=== PATIENT | female | born 1985 | race Caucasian/White ===

== ENCOUNTER 2021-02-11 13:35 | Observation (INO) ==
[2021-02-11] MEDS ORDERED: Aspirin 81 MG TAB.CHEW PO ONE (14:51)
[2021-02-11] MEDS ORDERED: Isovue-370 500 ML BOTTLE IVP ONE (14:51)
[2021-02-11 15:25] LABS: Basophils % 0.4 %; Eosinophils # 0.1 K/mcL (0.0-0.6); Eosinophils % 1.4 %; Hematocrit 45.8 % (35.3-44.9); Hemoglobin 14.4 g/dL (11.5-15.4); Immature Granulocytes % 0.3 % (0-4); Lymphocytes # 1.5 K/mcL (0.6-4.6); Lymphocytes % 20.8 %; Mean Corpuscular HGB Conc 31.4 g/dL (31.6-35.5); Mean Corpuscular Volume 82.8 fL (83.0-100.0); Mean Platelet Volume 11.3 fL (9.4-12.4); Monocytes # 0.6 K/mcL (0.0-1.3); Monocytes % 7.8 %; Neutrophils # 5.1 K/mcL (1.6-8.9); Platelet Count 230 K/mcL (140-400); Red Blood Count 5.53 M/mcL (3.82-4.97); Red Cell Distribution Width 13.2 % (11.5-14.5); Segmented Neutrophils % 69.3 %; White Blood Count 7.3 K/mcL (4.3-11.1)
[2021-02-11 15:32] LABS: INR 1.3; Prothrombin Time 14.1 Seconds (9.4-12.1)
[2021-02-11 15:34] LABS: Activated Partial Thrombo Time 35.4 Seconds (26.0-36.0)
[2021-02-11] MEDS: Nitroglycerin 0.4 MG TAB.SUBL SL PRN ×2 (15:34→16:49)
[2021-02-11 15:45] LABS: Bilirubin,Urine Negative (Negative); Blood,Urine Negative (Negative); Clarity,Urine Clear (Clear); Color,Urine Colorless (Yellow); Glucose,Urine (UA) Normal (Normal); Ketones,Urine Negative (Negative); Leukocyte Esterase,Urine Negative (Negative); Nitrite,Urine Negative (Negative); Protein,Urine Negative (Neg-Trace); Specific Gravity,Urine < 1.005 (1.010-1.025); Urobilinogen,Urine Normal (Normal)
[2021-02-11 15:47] LABS: Alanine Aminotransferase 9 Units/L (7-52); Albumin 4.6 g/dL (3.5-5.7); Albumin/Globulin Ratio 1.2 (1.1-2.2); Alkaline Phosphatase 94 Units/L (34-104); Aspartate Amino Transferase 18 Units/L (13-39); BUN/Creatinine Ratio 10 (6-26); Bilirubin,Direct 0.1 mg/dL (0.0-0.2); Bilirubin,Indirect 0.5 mg/dL (0.0-1.0); Bilirubin,Total 0.6 mg/dL (0.3-1.0); Blood Urea Nitrogen 9 mg/dL (6-20); Calcium 10.3 mg/dL (8.6-10.3); Carbon Dioxide 24 mEq/L (23-29); Chloride 102 mEq/L (98-107); Globulin 3.9 g/dL (2.4-3.5); Glucose 99 mg/dL (70-105); Lipase 38 Units/L (11-82); Osmolality,Calculated 283 (280-300); Potassium 4.1 mEq/L (3.5-5.1); Sodium 137 mEq/L (136-145); Total Protein 8.5 g/dL (6.4-8.9); eGFR For African Americans > 60 (> 60); eGFR For Non-African Americans > 60 (> 60)
[2021-02-11 15:58] LABS: Troponin I 0.04 ng/mL (< 0.04)
[2021-02-11] MEDS ORDERED: Melatonin 3 MG TABLET PO PRN (16:57)
[2021-02-11] MEDS ORDERED: Naloxone 0.4 MG/ML INJ IVP PRN (16:57)
[2021-02-11] MEDS ORDERED: Ondansetron ODT 4 MG TAB.RAPDIS SL ONE (16:57)
[2021-02-11] MEDS ORDERED: Mag Hydrox/Al Hydrox/Simeth 30 ML UDC PO PRN (16:57)
[2021-02-11] MEDS ORDERED: Ondansetron ODT 4 MG TAB.RAPDIS SL PRN (16:57)
[2021-02-11] MEDS ORDERED: Ondansetron 4 MG/2 ML VIAL IVP PRN (16:59)
[2021-02-11] MEDS ORDERED: Perflutren Lipid Microsphere 1.3 ML in 0.9 % Sodium Chloride 8.7 ML IVP PRN (16:59)
[2021-02-11 17:39] LABS: Influenza A PCR Negative (Negative); Influenza B PCR Negative (Negative); Resp. Syncytial Virus PCR Negative (Negative)
[2021-02-11 17:45] LABS: SARS-CoV-2 by PCR (In House) Negative (Negative)
[2021-02-11 18:14] LABS: Chol/HDL Ratio 3.2 (0-4.9); Cholesterol 211 mg/dL (< 200); HDL Cholesterol 66 mg/dL (40-59); LDL Cholesterol,Calculated 101 mg/dL (< 100); Triglycerides 221 mg/dL (< 150)
[2021-02-11] MEDS: amLODIPine 5 MG TABLET PO SCH (18:36)
[2021-02-11] MEDS: hydrOXYzine pamoate 25 MG CAPSULE PO PRN (21:09)
[2021-02-12 02:20] LABS: Hematocrit 42.8 % (35.3-44.9); Hemoglobin 13.5 g/dL (11.5-15.4); Mean Corpuscular HGB Conc 31.5 g/dL (31.6-35.5); Mean Corpuscular Volume 82.5 fL (83.0-100.0); Platelet Count 218 K/mcL (140-400); Red Blood Count 5.19 M/mcL (3.82-4.97); Red Cell Distribution Width 13.3 % (11.5-14.5); White Blood Count 9.9 K/mcL (4.3-11.1)
[2021-02-12 02:27] LABS: INR 1.3; Prothrombin Time 14.8 Seconds (9.4-12.1)
[2021-02-12 02:39] LABS: BUN/Creatinine Ratio 13 (6-26); Blood Urea Nitrogen 12 mg/dL (6-20); Calcium 9.6 mg/dL (8.6-10.3); Carbon Dioxide 24 mEq/L (23-29); Chloride 104 mEq/L (98-107); Glucose 108 mg/dL (70-105); Osmolality,Calculated 284 (280-300); Potassium 3.6 mEq/L (3.5-5.1); Sodium 137 mEq/L (136-145); eGFR For African Americans > 60 (> 60); eGFR For Non-African Americans > 60 (> 60)
[2021-02-12] MEDS ORDERED: Regadenoson 0.4 MG/5 ML SYRINGE IVP ONE (06:12)
[2021-02-12] MEDS: amLODIPine 5 MG TABLET PO SCH (10:10)
[2021-02-12] MEDS ORDERED: 0.9 % Sodium Chloride 2,000 ML ONE (10:20)
[2021-02-12] MEDS ORDERED: Heparin 1,000 UNITS/500 mL 500 ML ONE (10:20)
[2021-02-12] MEDS ORDERED: *HR* Heparin 10,000 UNIT/10 ML VIAL ONE ×2 (10:20→10:34)
[2021-02-12] MEDS ORDERED: Nitroglycerin 1,000 MCG/5 ML VIAL IV ONE (10:21)
[2021-02-12] MEDS ORDERED: ISOVUE-370 200 ML INFUS..BTL ONE (10:21)
[2021-02-12] MEDS ORDERED: *HR* Midazolam HCl 2 MG/2 ML VIAL ONE (10:28)
[2021-02-12] MEDS ORDERED: *HR* FentaNYL (PF) 100 MCG/2 ML VIAL ONE (10:28)
[2021-02-12 15:06] LABS: C-Reactive Protein < 5 mg/L (Less than 10)
[2021-02-12 17:39] LABS: Creatine Kinase 54 Units/L (30-223)
[2021-02-12] MEDS: hydrOXYzine pamoate 25 MG CAPSULE PO PRN (21:20)
[2021-02-13 01:48] LABS: Hematocrit 41.2 % (35.3-44.9); Hemoglobin 13.1 g/dL (11.5-15.4); Mean Corpuscular HGB Conc 31.8 g/dL (31.6-35.5); Mean Corpuscular Hemoglobin 26.6 pg (28.0-33.3); Mean Corpuscular Volume 83.7 fL (83.0-100.0); Mean Platelet Volume 11.2 fL (9.4-12.4); Platelet Count 224 K/mcL (140-400); Red Blood Count 4.92 M/mcL (3.82-4.97); Red Cell Distribution Width 13.4 % (11.5-14.5); White Blood Count 8.6 K/mcL (4.3-11.1)
[2021-02-13 02:07] LABS: BUN/Creatinine Ratio 16 (6-26); Blood Urea Nitrogen 16 mg/dL (6-20); Calcium 9.7 mg/dL (8.6-10.3); Carbon Dioxide 24 mEq/L (23-29); Chloride 105 mEq/L (98-107); Glucose 109 mg/dL (70-105); Osmolality,Calculated 290 (280-300); Potassium 4.2 mEq/L (3.5-5.1); Sodium 139 mEq/L (136-145); eGFR For African Americans > 60 (> 60); eGFR For Non-African Americans > 60 (> 60)
[2021-02-13] MEDS: amLODIPine 5 MG TABLET PO SCH (08:22)
[2021-02-13] MEDS ORDERED: Aspirin Enteric Coated 81 MG Tablet PO SCH (09:00)
[2021-02-13 11:33] VITALS: BP 129/92; PULSE 91; TEMP 97.9; O2SAT 99
[2021-02-15 12:09] LABS: ANA IgG by ELISA NONE DETECTED (None Detected)
== END 2021-02-13 12:39 | disposition home or self-care (01) ==
LOC: SUATTDRO → 3BNU 13:35 → EMEROOARM 13:35 → SUATTDRO 17:30 → 3BNU 18:09
PROVIDERS: ADMIT Family Medicine; ATTEND Family Medicine

== ENCOUNTER 2021-02-24 12:39 | Observation (INO) ==
[2021-02-24 13:26] LABS: Basophils % 0.3 %; Eosinophils # 0.1 K/mcL (0.0-0.6); Eosinophils % 1.1 %; Hematocrit 44.4 % (35.3-44.9); Hemoglobin 14.2 g/dL (11.5-15.4); Immature Granulocytes % 0.2 % (0-4); Lymphocytes # 1.1 K/mcL (0.6-4.6); Lymphocytes % 18.6 %; Mean Corpuscular Volume 81.2 fL (83.0-100.0); Mean Platelet Volume 10.9 fL (9.4-12.4); Monocytes # 0.5 K/mcL (0.0-1.3); Monocytes % 7.5 %; Neutrophils # 4.4 K/mcL (1.6-8.9); Platelet Count 232 K/mcL (140-400); Red Blood Count 5.47 M/mcL (3.82-4.97); Red Cell Distribution Width 13.5 % (11.5-14.5); Segmented Neutrophils % 72.3 %; White Blood Count 6.1 K/mcL (4.3-11.1)
[2021-02-24 13:33] LABS: INR 1.4; Prothrombin Time 15.4 Seconds (9.4-12.1)
[2021-02-24 13:37] LABS: Bacteria,Urine Few per hpf (None-Few); Bilirubin,Urine Negative (Negative); Blood,Urine Negative (Negative); Clarity,Urine Clear (Clear); Color,Urine Colorless (Yellow); Glucose,Urine (UA) Normal (Normal); Hyaline Casts,Urine Few per lpf (None Seen); Ketones,Urine Negative (Negative); Leukocyte Esterase,Urine Moderate (Negative); Mucus,Urine Few per lpf (None-Few); Nitrite,Urine Negative (Negative); PH,Urine 6.5 pH Units (5.0-8.0); Protein,Urine Negative (Neg-Trace); RBC,Urine 0-3 per hpf (0-3); Specific Gravity,Urine 1.006 (1.010-1.025); Squamous Epithelial Cell,Urine Few per hpf (None-Few); Urobilinogen,Urine Normal (Normal)
[2021-02-24 13:48] LABS: BUN/Creatinine Ratio 12 (6-26); Blood Urea Nitrogen 11 mg/dL (6-20); Calcium 9.6 mg/dL (8.6-10.3); Carbon Dioxide 23 mEq/L (23-29); Chloride 104 mEq/L (98-107); Glucose 101 mg/dL (70-105); Osmolality,Calculated 278 (280-300); Potassium 4.2 mEq/L (3.5-5.1); Sodium 134 mEq/L (136-145); eGFR For African Americans > 60 (> 60); eGFR For Non-African Americans > 60 (> 60)
[2021-02-24 13:54] LABS: Troponin I 0.04 ng/mL (< 0.04)
[2021-02-24] MEDS ORDERED: Naloxone 0.4 MG/ML INJ IVP PRN (14:57)
[2021-02-24] MEDS ORDERED: cloNIDine HCL 0.1 MG TABLET PO PRN (17:40)
[2021-02-24] MEDS: *HR* Heparin 5,000 UNIT/ML VIAL SQ SCH (18:26)
[2021-02-25 00:34] LABS: Thyroid Stimulating Hormone 1.549 mcIU/mL (0.340-5.600)
[2021-02-25] MEDS: Ondansetron 4 MG/2 ML VIAL IVP PRN (03:40)
[2021-02-25 03:43] LABS: Basophils % 0.5 %; Eosinophils # 0.2 K/mcL (0.0-0.6); Eosinophils % 1.9 %; Hematocrit 43.4 % (35.3-44.9); Hemoglobin 14.3 g/dL (11.5-15.4); Immature Granulocytes % 0.3 % (0-4); Lymphocytes # 2.6 K/mcL (0.6-4.6); Lymphocytes % 30.6 %; Mean Corpuscular HGB Conc 32.9 g/dL (31.6-35.5); Mean Corpuscular Hemoglobin 26.9 pg (28.0-33.3); Mean Corpuscular Volume 81.6 fL (83.0-100.0); Mean Platelet Volume 11.4 fL (9.4-12.4); Monocytes # 0.7 K/mcL (0.0-1.3); Monocytes % 8.4 %; Platelet Count 247 K/mcL (140-400); Red Blood Count 5.32 M/mcL (3.82-4.97); Red Cell Distribution Width 13.5 % (11.5-14.5); Segmented Neutrophils % 58.3 %; White Blood Count 8.6 K/mcL (4.3-11.1)
[2021-02-25 04:01] LABS: BUN/Creatinine Ratio 11 (6-26); Blood Urea Nitrogen 10 mg/dL (6-20); Calcium 9.6 mg/dL (8.6-10.3); Carbon Dioxide 24 mEq/L (23-29); Chloride 105 mEq/L (98-107); Glucose 97 mg/dL (70-105); Osmolality,Calculated 283 (280-300); Potassium 3.6 mEq/L (3.5-5.1); Sodium 137 mEq/L (136-145); eGFR For African Americans > 60 (> 60); eGFR For Non-African Americans > 60 (> 60)
[2021-02-25] MEDS: *HR* Heparin 5,000 UNIT/ML VIAL SQ SCH ×2 (06:06→16:42)
[2021-02-25] MEDS: amLODIPine 5 MG TABLET PO SCH (07:38)
[2021-02-25] MEDS ORDERED: Nitroglycerin 0.4 MG TAB.SUBL SL PRN (13:39)
[2021-02-25] MEDS ORDERED: Loratadine 10 MG TABLET PO PRN (20:16)
[2021-02-26] MEDS: *HR* Heparin 5,000 UNIT/ML VIAL SQ SCH ×2 (04:32→16:32)
[2021-02-26] MEDS: Ondansetron 4 MG/2 ML VIAL IVP PRN (04:37)
[2021-02-26] MEDS: Acetaminophen 325 MG TABLET PO PRN (04:37)
[2021-02-26] MEDS: amLODIPine 5 MG TABLET PO SCH ×2 (07:00→16:35)
[2021-02-27] MEDS: *HR* Heparin 5,000 UNIT/ML VIAL SQ SCH ×2 (05:45→17:15)
[2021-02-27] MEDS: amLODIPine 5 MG TABLET PO SCH (07:38)
[2021-02-27] MEDS: Ondansetron 4 MG/2 ML VIAL IVP PRN (10:46)
[2021-02-27] MEDS ORDERED: *HR* FentaNYL (PF) 100 MCG/2 ML VIAL ONE ×2 (10:55→12:18)
[2021-02-27] MEDS ORDERED: 0.9 % Sodium Chloride 1,000 ML ONE (10:56)
[2021-02-27] MEDS ORDERED: *HR* Midazolam HCl 2 MG/2 ML VIAL ONE ×4 (10:56→13:17)
[2021-02-27] MEDS ORDERED: 0.9 % Sodium Chloride 500 ML ONE ×2 (10:56→11:37)
[2021-02-27] MEDS: Acetaminophen 325 MG TABLET PO PRN ×2 (17:15→22:58)
[2021-02-28 02:31] LABS: BUN/Creatinine Ratio 16 (6-26); Blood Urea Nitrogen 12 mg/dL (6-20); Carbon Dioxide 22 mEq/L (23-29); Chloride 107 mEq/L (98-107); Potassium 3.6 mEq/L (3.5-5.1); Sodium 137 mEq/L (136-145); eGFR For African Americans > 60 (> 60); eGFR For Non-African Americans > 60 (> 60)
[2021-02-28] MEDS: *HR* Heparin 5,000 UNIT/ML VIAL SQ SCH (05:33)
[2021-02-28] MEDS: Acetaminophen 325 MG TABLET PO PRN (08:36)
[2021-02-28] MEDS: amLODIPine 5 MG TABLET PO SCH (08:36)
[2021-02-28 11:24] VITALS: BP 143/80; PULSE 83; O2SAT 94
[2021-02-28] MEDS ORDERED: *HR* LORazepam 2 MG/ML VIAL IVP ONE (11:32)
[2021-02-28 12:22] VITALS: TEMP 98.5
== END 2021-02-28 14:55 | disposition home or self-care (01) ==
LOC: EMEROOARM 12:39 → 3BNU 12:39 → SUATTDRO 14:32 → 2NNU 14:39
PROVIDERS: ADMIT Internal Medicine; ATTEND Internal Medicine